=== PATIENT | female | born 1995 | race Caucasian/White ===

== ENCOUNTER → 2016-06-07 | Outpatient (CLI) | payer OTHER | LOC: BRMIMAGING 09:29 | PROVIDERS: ATTEND Specialist | DX: M79.644 Pain in right finger(s) (principal) | CPT/HCPCS: 73130-PO ==

== ENCOUNTER → 2016-06-11 | Outpatient (CLI) | payer OTHER | LOC: BRMIMAGING 11:31 | PROVIDERS: ATTEND Internal Medicine | DX: M25.531 Pain in right wrist (principal); M54.2 Cervicalgia | CPT/HCPCS: 72052-PO; 73110-PO ==

== ENCOUNTER → 2017-07-22 | Outpatient (CLI) | payer OTHER | LOC: BRMIMAGING 11:56 | PROVIDERS: ATTEND Internal Medicine | DX: M79.644 Pain in right finger(s) (principal); V89.9XXA Person injured in unspecified vehicle accident, initial encounter | CPT/HCPCS: 73110-PO ==